=== PATIENT | male | born 1955 | race Hispanic/Latino ===

== ENCOUNTER → 2019-02-23 | Day surgery (SDC) | payer MEDICARE ==
[2019-02-22 12:44] LABS: BASOPHILS # (AUTO) 0.1 (0.0-0.1); BASOPHILS % 0.8 % (0.0-1.0); EOSINOPHILS # (AUTO) 0.2 (0.0-0.4); EOSINOPHILS % 2.3 % (0.0-6.0); HEMATOCRIT 40.8 % (38.2-49.6); HEMOGLOBIN 13.7 g/dL (14.0-18.0); LYMPHOCYTES # (AUTO) 2.1 (1.0-3.2); LYMPHOCYTES % 20.7 % (18.0-39.1); MEAN CORPUSCULAR HEMOGLOBIN 27.1 pg (28-32); MEAN CORPUSCULAR HGB CONC 33.6 g/dL (31-35); MEAN CORPUSCULAR VOLUME 80.6 fL (81-99); MONOCYTES # (AUTO) 0.9 (0.2-0.8); NEUTROPHILS # (AUTO) 6.8 (2.1-6.9); NEUTROPHILS % 66.6 % (38.7-80.0); PLATELET COUNT 329 x10e3/uL (140-360); RED BLOOD COUNT 5.06 x10e6/uL (4.3-5.7); RED CELL DISTRIBUTION WIDTH 13.5 % (11.7-14.4)
[2019-02-22 13:01] LABS: ANION GAP 11.2 mmol/L (8-16); BLOOD UREA NITROGEN 12 mg/dL (7-26); BUN/CREATININE RATIO 12 (6-25); CALCIUM 9.7 mg/dL (8.4-10.2); CARBON DIOXIDE 27 mmol/L (22-29); CHLORIDE 102 mmol/L (98-107); CREATININE, SERUM 1.02 mg/dL (0.72-1.25); EST GLOMERULAR FILTRATION RATE > 60 ML/MIN (60-); GLUCOSE 108 mg/dL (74-118); POTASSIUM 3.2 mmol/L (3.5-5.1); SODIUM 137 mmol/L (136-145)
--- NOTE | 2019-02-22 13:53 | Diagnostic Imaging Report ---
Chest, 1 view, 02/22/2019. History: , Gallbladder surgery. Comparison: None available. Findings: The cardiomediastinal silhouette and pulmonary vasculature are within normal limits for a portable exam. There is minimal right apical pleural thickening. There is no focal consolidation or pleural effusion. There are no acute osseous or soft tissue abnormalities. Impression: No acute cardiopulmonary abnormality. Signed by: Yash Seay on 02/22/2019 1:50 PM
[~2019-02-23] MED LIST: ACETAMINOPHEN 1000 MG/100 ML IV ONE; ALLOPURINOL300 MG PO; BREO ELLIPTA 21 EACH INH; BUPIVACAINE 0.25% 30ML SDV INJ ONE; DEXAMETHASONE SOD PHOS INJ 4 MG/ML VIAL ONE; FENTANYL CITRATE/PF 100MCG/2 ML INJ ONE; FLUTICASONE; GEMFIBROZIL600 MG PO; GLYCOPYRROLATE INJ 1MG/ 5 ML SYR ONE; HYDROMORPHONE 2MG/ML 2 MG/ML ML ONE; LIDOCAINE HCL 2% LOCAL INJ 5 ML SDV VIAL INJ ONE; LISINOPRIL-HCT1 EACH PO; MIDAZOLAM HCL 2 MG/2 ML VIAL ONE; MONTELUKAST SOD10 MG PO; NEOSTIGMINE 5 MG/5ML SYR ONE; ONDANSETRON HCL INJ 2MG/ML 2ML 2 MG/ML VIAL ONE; PANTOPRAZOLE SO40 MG PO; PRO AIR INH; PROPOFOL IV EMULSION 10 MG/ML 20 ML VIAL ONE; ROCURONIUM BROMIDE 10 MG/ML 5ML VIAL ONE; SEVOFLURANE INHAL SOLN 250 ML PEN BTL ONE
--- OUTSIDE RECORDS SUMMARY | 2019-02-23 10:25 | XMS REPORT ---
Author Author [facility] Address Unknown Phone Unavailable Care Team Providers Care Furniture Mover Name Role Phone Jv DOWNING Unavailable Unavailable Problems This patient has no known problems. Allergies, Adverse Reactions, Alerts This patient has no known allergies or adverse reactions. Medications This patient has no known medications. Results Test Description Test Time Test Comments Text Results Atomic Results Result Comments CHEST 2 VIEWS 2019-02-22 13:49:00 [place] [id number] Patient Name: YARI SORENSEN MR #: [id number] : 1955 Age/Sex: 63/M Req #: [id number] Adm Physician: Ordered by: KHADAR DOWNING MD Report #: [id number] Location: OR Room/Bed: Procedure: [id number] DX/CHEST 2 VIEWS Exam Date: 02/22/19 Exam Time: 1305 REPORT STATUS: Signed Chest, 1 view, 02/22/2019. History: , Gallbladder surgery. Comparison: None available. Findings: The cardiomediastinal silhouette and pulmonary vasculature are within normal limits for a portable exam. There is minimal right apical pleural thickening. There is no focal consolidation or pleural effusion. There are no acute osseous or soft tissue abnormalities. Impression: No acute cardiopulmonary abnormality. Signed by: Yash Seay on 02/22/2019 1:50 PM Dictated By: YASH SEAY MD [id number] Transcribed By: JC on 02/22/19 135 COPY TO: KHADAR DOWNING MD
--- NOTE | 2019-02-23 15:15 | Operative Report ---
DATE OF PROCEDURE: 02/23/2019 SURGEON: Carlos Thornton MD PREOPERATIVE DIAGNOSIS: Cholecystitis. POSTOPERATIVE DIAGNOSES: 1. Cholecystitis. 2. Appendicitis. OPERATIVE PROCEDURES: Laparoscopic cholecystectomy and appendectomy. ANESTHESIA: General. INDICATIONS: A 63-year-old male with recurrent epigastric abdominal pain and right upper quadrant pain with ultrasound showing ejection fraction of the gallbladder 10%. He consented for laparoscopic cholecystectomy. During the procedure, the appendix was found adjacent to the gallbladder lying high in the right upper quadrant. At this time, I talked to the family, who consented for appendectomy at the same time. DESCRIPTION OF PROCEDURE: The patient was brought to OR intubated. The abdomen prepped and draped in sterile fashion. A supraumbilical incision was made and a 10 mm port inserted. Insufflation began under direct vision. Other port site placed in midepigastric and right upper quadrant. Gallbladder chronically inflamed and distended. Fundus retracted in cephalad direction. Next, gallbladder retracted laterally. With blunt and sharp dissection, we isolated the cystic artery and cystic duct and noted the junction of the common bile duct before triple clipping the cystic artery and cystic duct, and divided them between clips. Gallbladder detached from the liver with cautery and taken out through umbilical port site. Irrigation then carried out. Hemostasis achieved. We then noted the appendix in the right upper quadrant, just right at the area of the gallbladder fossa. Consent was obtained from the family intraoperatively and I proceeded to take down the mesoappendix down to the neck of the appendix using LigaSure instrument. The appendix was then snared and controlled with an Endoloop ties of 0 PDS and the appendix amputated distal to the tie. The appendix was placed in an Endopouch and retrieved out the peritoneal cavity. Operative field was then irrigated. Hemostasis achieved. All ports removed under direct vision. Fascia closure with 0 Vicryl. Skin then closed with subcuticular stitch. The patient was extubated, transported to recovery room. ESTIMATED BLOOD LOSS: 30 mL. Carlos Thornton MD DNL/MODL /[id number]
[2019-02-23 15:25] VITALS: BP 116/77
== END | disposition home or self-care (01) ==
LOC: OR 10:13
PROVIDERS: ATTEND Surgery
DX: K80.10 Calculus of gallbladder with chronic cholecystitis without obstruction (principal); K37 Unspecified appendicitis; J44.9 Chronic obstructive pulmonary disease, unspecified; I10 Essential (primary) hypertension; I71.4 Abdominal aortic aneurysm, without rupture; K21.9 Gastro-esophageal reflux disease without esophagitis; Z01.810 Encounter for preprocedural cardiovascular examination; Z01.812 Encounter for preprocedural laboratory examination; Z01.818 Encounter for other preprocedural examination; Z87.891 Personal history of nicotine dependence
CPT/HCPCS: 36415; 44970; 47562; 71046; 80048; 85025; 88304; 93005; J0131; J1100; J1170; J2001; J2250; J2405; J2704; J3010; J3490

== ENCOUNTER → 2020-07-18 | Outpatient (CLI) | payer MEDICARE ==
[~2020-07-18] MED LIST changes: -ACETAMINOPHEN 1000 MG/100 ML IV ONE; -BUPIVACAINE 0.25% 30ML SDV INJ ONE; -DEXAMETHASONE SOD PHOS INJ 4 MG/ML VIAL ONE; -FENTANYL CITRATE/PF 100MCG/2 ML INJ ONE; -GLYCOPYRROLATE INJ 1MG/ 5 ML SYR ONE; -HYDROMORPHONE 2MG/ML 2 MG/ML ML ONE; -LIDOCAINE HCL 2% LOCAL INJ 5 ML SDV VIAL INJ ONE; -MIDAZOLAM HCL 2 MG/2 ML VIAL ONE; -NEOSTIGMINE 5 MG/5ML SYR ONE; -ONDANSETRON HCL INJ 2MG/ML 2ML 2 MG/ML VIAL ONE; -PROPOFOL IV EMULSION 10 MG/ML 20 ML VIAL ONE; +REGADENOSON 0.4 MG/5 ML SYR IV ONE; -ROCURONIUM BROMIDE 10 MG/ML 5ML VIAL ONE; -SEVOFLURANE INHAL SOLN 250 ML PEN BTL ONE
== END ==
LOC: NM 10:14
PROVIDERS: ATTEND Internal Medicine Cardiovascular Disease
DX: R07.9 Chest pain, unspecified (principal)
CPT/HCPCS: 78452; 93017; 93306; A9502; J2785

== ENCOUNTER → 2024-01-12 | Outpatient (RCR) | payer MEDICARE ==
[~2024-01-12] MED LIST changes: -REGADENOSON 0.4 MG/5 ML SYR IV ONE
== END ==
LOC: PT 12:31
PROVIDERS: ATTEND Specialist
DX: M17.11 Unilateral primary osteoarthritis, right knee (principal)

== ENCOUNTER 2024-02-05 10:00 | Outpatient (RCR) | payer MEDICARE | END 2024-02-12 | LOC: PT 10:00 | PROVIDERS: ATTEND Specialist | DX: M17.11 Unilateral primary osteoarthritis, right knee (principal) ==